=== PATIENT | male | born 2000 | race Caucasian/White ===

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

== ENCOUNTER 2021-06-29 22:37 | Emergency (ER) | payer OTHER ==
[~2021-06-29] VITALS: Ht 162.6 cm; Wt 68.3 kg
[2021-06-29 22:45] VITALS: BP 137/107
--- NOTE | 2021-06-29 22:50 | NUR ---
PT AMBULATED TO BED #2
[2021-06-29] MEDS ORDERED: PANTOPRAZOLE 40 MG INJ VIAL IVP ONE (23:05)
[2021-06-29] MEDS ORDERED: KETOROLAC 30 MG/ML VIAL IVP ONE (23:05)
[2021-06-29] MEDS ORDERED: ONDANSETRON 4 MG/2 ML VIAL IVP ONE (23:05)
[2021-06-29] MEDS ORDERED: NACL 0.9% 1,000 ML IV SCH (23:05)
--- NOTE | 2021-06-29 23:14 | NUR ---
ASSET PROTECTION PROFESSIONAL OBTAINED BLOOD AND URINE SAMPLE
--- NOTE | 2021-06-29 23:14 | NUR ---
ULTRASOUND AT BEDSIDE
[2021-06-29 23:18] LABS: EOSINOPHILS # (AUTO) 1.1 K/uL (0-0.4); EOSINOPHILS % (AUTO) 14.7 % (0.0-4.0); HEMATOCRIT 41.3 % (36-52); HEMOGLOBIN 14.3 g/dL (12.0-18.0); LYMPHOCYTES # (AUTO) 4.7 K/uL (2.0-11.5); LYMPHOCYTES % (AUTO) 65.3 % (20.5-51.1); MEAN CORPUSCULAR HEMOGLOBIN 30 pg (27-31); MEAN CORPUSCULAR HGB CONC 35 g/dL (33-37); MEAN CORPUSCULAR VOLUME 86.4 fL (80-94); MONOCYTES # (AUTO) 1.3 K/uL (0.8-1.0); MONOCYTES % (AUTO) 18.7 % (1.7-9.3); NEUTROPHILS # (AUTO) 0.1 K/uL (1.8-7.7); NEUTROPHILS % (AUTO) 1.3 % (42.2-75.2); PLATELET COUNT (AUTO) 233 K/uL (140-450); RED BLOOD CELL COUNT(AUTO) 4.78 MIL/uL (4.20-6.10); WHITE BLOOD COUNT (AUTO) 7.2 K/uL (4.5-11.0)
--- NOTE | 2021-06-29 23:31 | NUR ---
PT TAKEN TO CT
[2021-06-29 23:33] LABS: APPEARANCE,URINE CLEAR (CLEAR); BILIRUBIN,URINE NEGATIVE (NEGATIVE); BLOOD, URINE NEGATIVE (NEGATIVE); COLOR,URINE YELLOW (YELLOW); LEUKOCYTE ESTERASE ,URINE NEGATIVE (NEGATIVE); NITRITE, URINE NEGATIVE (NEGATIVE); UGLUCOSE NEGATIVE (NEGATIVE)
[2021-06-29 23:39] LABS: ALBUMIN 4.3 g/dL (3.4-5.0); ANION GAP 15.6 (8-16); CARBON DIOXIDE 25.4 mmol/L (21-32); CREATININE 0.8 mg/dL (0.6-1.3); TOTAL BILIRUBIN 0.3 mg/dL (0.0-1.0)
--- NOTE | 2021-06-29 23:47 | NUR ---
20 Y/O MALE BIBS FROM HOME, C/O 11/29 RUQ PAIN S/P EATING CANES CHICKEN [id number]. DENIES N/V/D. PT HAS HAD THIS PAIN IN PAST, FOR ABOUT A YEAR, COMES AND GOES. WORSENS AFTER EATING TOO MUCH. UNLABORED BREATHING; SPEAKING IN FULL SENTENCES; A/OX4, GCS-15; AMBULATES W/O ASSISTANCE. SEATED IN BED W/ HOB RAISED AND BED IN LOWEST SETTING, RAIL UP X1. DENIES HX, RX AND ALLERGIES
[2021-06-30] MEDS ORDERED: PANT40EC PO (01:43)
[2021-06-30] MEDS ORDERED: ONDA-188 SL (01:43)
[2021-06-30 02:34] VITALS: BP 137/107
--- NOTE | 2021-06-30 02:35 | NUR ---
Patient discharged with v/s stable. Written and verbal after care instructions given and explained. Patient alert, oriented and verbalized understanding of instructions. Ambulatory with steady gait. All questions addressed prior to discharge. ID band removed. Patient advised to follow up with PMD. Rx of ZOFRAN AND PROTONIX given. Patient educated on indication of medication including possible reaction and side effects. Opportunity to ask questions provided and answered. A/OX4, VSS, UNLABORED BREATHING, AMBULATORY, AND CALM DEMEANOR.
== END 2021-06-30 02:33 | disposition home or self-care (01) ==
LOC: MED 22:37
DX: R10.11 Right upper quadrant pain (principal); E87.6 Hypokalemia
CPT/HCPCS: 36415; 74176; 76705; 80053; 81003; 83690; 85025; 96361; 96374; 96375; 99285; C9113; J1885; J2405; J7030; Q0092

== ENCOUNTER 2021-12-06 03:19 | Emergency (ER) | payer OTHER ==
[~2021-12-06] VITALS: Ht 162.6 cm; Wt 66.5 kg
[~2021-12-06 03:19] MED LIST: ONDA-188 SL; PANT40EC PO
[2021-12-06 03:26] VITALS: BP 117/60
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
--- NOTE | 2021-12-06 03:31 | NUR ---
IN TRIAGE FOR MSE
[2021-12-06 03:55] LABS: APPEARANCE,URINE CLEAR (CLEAR); BILIRUBIN,URINE NEGATIVE (NEGATIVE); BLOOD, URINE NEGATIVE (NEGATIVE); COLOR,URINE YELLOW (YELLOW); LEUKOCYTE ESTERASE ,URINE NEGATIVE (NEGATIVE); NITRITE, URINE NEGATIVE (NEGATIVE); UGLUCOSE NEGATIVE (NEGATIVE)
[2021-12-06] MEDS ORDERED: IBUPROFEN 400 MG TAB PO ONE (04:00)
--- NOTE | 2021-12-06 04:17 | NUR ---
PT TAKEN TO ULTRASOUND
[2021-12-06 05:51] VITALS: BP 117/60
== END 2021-12-06 05:52 | disposition home or self-care (01) ==
LOC: MED 03:19
DX: N50.811 Right testicular pain (principal); N43.3 Hydrocele, unspecified; Z79.899 Other long term (current) drug therapy
CPT/HCPCS: 76870; 81003; 99284; Q0092